=== PATIENT | male | born 1960 | race Native Hawaiian/Other Pacific Islander ===

== ENCOUNTER 2018-12-14 20:38 | Inpatient (IN) | payer BC ==
[2018-12-14] MEDS ORDERED: ASPIRIN PO ONE (22:20)
[2018-12-14 22:50] LABS: Basophils # (Auto) 0.1 K/mm3 (0.0-0.1); Basophils % (Auto) 0.8 % (0.0-1.8); Eosinophils # (Auto) 0.5 K/mm3 (0.0-0.4); Eosinophils % (Auto) 8.7 % (0.0-4.3); Hematocrit 46.1 % (35.5-45.6); Hemoglobin 15.5 gm/dl (11.8-15.2); Lymphocytes # (Auto) 2.2 K/mm3 (1.2-5.4); Lymphocytes % (Auto) 36.2 % (13.4-35.0); Mean Corpuscular HGB Conc 34 % (32-34); Mean Corpuscular Volume 89 fl (84-94); Monocytes # (Auto) 0.4 K/mm3 (0.0-0.8); Monocytes % (Auto) 6.6 % (0.0-7.3); Platelet Count 256 K/mm3 (140-440); Red Blood Count 5.21 M/mm3 (3.65-5.03); Red Cell Distribution Width 13.4 % (13.2-15.2)
[2018-12-14 23:18] LABS: BUN/Creatinine Ratio 21; Blood Urea Nitrogen 15 mg/dL (9-20); Hemolysis Index 32
--- NOTE | 2018-12-14 23:20 | XRay Report ---
PROCEDURE: XR CHEST 1V AP TECHNIQUE: Chest radiograph single view. HISTORY: Chest Pain COMPARISONS: None . FINDINGS: Heart: Normal. Mediastinum/Vessels: Normal. Lungs/Pleural space: Normal. Bony thorax: There is a significant right convex thoracic scoliosis. Life support devices: None. IMPRESSION: No acute cardiopulmonary abnormality. This document is electronically signed by Holli Nolan DO., December 14 2018 11:18:38 PM ET
--- NOTE | 2018-12-15 06:16 | Emergency Department Report ---
ED Chest Pain HPI - General Chief Complaint: Chest Pain Stated Complaint: LUZ/CP Time Seen by Provider: 12/15/18 06:15 Source: patient, family Mode of arrival: Ambulatory Limitations: No Limitations - History of Present Illness Initial Comments: 88-year-old man who states he feels back to normal now. He had intermittent chest pressure with some radiation to his left arm yesterday. He said shortness of breath intermittently for 4 days but not currently. He denies acute diaphoresis nausea or vomiting. He states he stopped smoking 30 years ago. His mother had a heart attack. He has had no prior cardiac workup. MD Complaint: chest pain -: hour(s) Onset: during rest Pain Location: substernal Pain Radiation: LUE Severity: moderate Quality: tightness, pressure Consistency: intermittent, now resolved Improves With: nothing Worsens With: nothing re: dyspnea. denies: nausea, vomting, diaphoresis, sense of impending doom Other Symptoms: denies: cough, fever, syncope Treatments Prior to Arrival: none Aspirin use within the Past 7 Days: (0) No - Related Data Allergies Allergy/AdvReac Type Severity Reaction Status Date / Time No Known Allergies Allergy Verified 12/15/18 06:21 Heart Score - HEART Score History: Highly suspicious EKG: Normal Age: 45-65 Risk factors: > 3 risk factors or hx of atherosclerotic disease Troponin: < normal limit HEART Score: 5 - Critical Actions Critical Actions: 4-6 pts:12-16.6% risk of adverse cardiac event. Should be admitted ED Review of Systems ROS: Stated complaint: LUZ/CP Other details as noted in HPI Constitutional: denies: chills, fever Eyes: denies: eye pain, eye discharge, vision change ENT: denies: ear pain, throat pain Respiratory: shortness of breath. denies: cough, wheezing Cardiovascular: chest pain. denies: palpitations Endocrine: no symptoms reported Gastrointestinal: denies: abdominal pain, nausea, diarrhea Genitourinary: denies: urgency, dysuria Musculoskeletal: denies: back pain, joint swelling, arthralgia Skin: denies: rash, lesions Neurological: denies: headache, weakness, paresthesias Psychiatric: denies: anxiety, depression Hematological/Lymphatic: denies: easy bleeding, easy bruising ED Past Medical Hx - Past Medical History Hx Hypertension: Yes Hx GERD: Yes Hx Asthma: Yes Additional medical history: Psoriasis - Surgical History Past Surgical History?: No - Social History Smoking Status: Former Smoker Substance Use Type: None ED Physical Exam - General Limitations: No Limitations General appearance: alert, in no apparent distress - Head Head exam: Present: atraumatic, normocephalic - Eye Eye exam: Present: normal appearance. Absent: scleral icterus - ENT ENT exam: Present: mucous membranes moist - Neck Neck exam: Present: normal inspection. Absent: tenderness, meningismus - Respiratory Respiratory exam: Present: normal lung sounds bilaterally. Absent: respiratory distress - Cardiovascular Cardiovascular Exam: Present: regular rate, normal rhythm. Absent: systolic murmur, diastolic murmur, rubs, gallop - GI/Abdominal GI/Abdominal exam: Present: soft, normal bowel sounds. Absent: distended, tenderness, guarding, rebound, rigid - Rectal Rectal exam: Present: deferred - Extremities Exam Extremities exam: Present: normal inspection, normal capillary refill. Absent: calf tenderness - Back Exam Back exam: Present: normal inspection - Neurological Exam Neurological exam: Present: alert, oriented X3, CN II-XII intact. Absent: motor sensory deficit - Psychiatric Psychiatric exam: Present: normal affect, normal mood - Skin Skin exam: Present: warm, dry, intact, normal color. Absent: rash ED Course Vital Signs 12/14/18 12/15/18 12/15/18 22:15 05:29 06:53 Temperature 97.9 F 98.3 F Pulse Rate 87 64 70 Respiratory 18 20 Rate Blood Pressure 134/94 131/100 Blood Pressure 148/102 [Left] O2 Sat by Pulse 99 Oximetry - Reevaluation(s) Reevaluation #1: Patient initially declined aspirin he states he gets some heartburn. He is given IV Protonix and encouraged to take the aspirin. 0.5 of Nitropaste given for his diastolic hypertension. He will be admitted for further care and evaluation by the hospitalist service. 12/15/18 07:09 PAUL score - Paul Score Age > 65: (0) No Aspirin use within the Past 7 Days: (0) No 3 or more CAD Risk Factors: (1) Yes 2 or more Angina events in past 24 hrs: (1) Yes Known CAD with more than 50% Stenosis: (0) No Elevated Cardiac Markers: (0) No ST Deviation Greater than 0.5mm: (0) No PAUL Score: 2 ED Medical Decision Making - Lab Data Result diagrams: 12/14/18 22:25 12/14/18 22:25 Laboratory Results - last 24 hr 12/14/18 12/14/18 12/15/18 22:25 22:25 00:47 WBC 6.2 RBC 5.21 H Hgb 15.5 H Hct 46.1 H MCV 89 MCH 30 MCHC 34 RDW 13.4 Plt Count 256 Lymph % (Auto) 36.2 H [place] % (Auto) 6.6 Eos % (Auto) 8.7 H Baso % (Auto) 0.8 Lymph # 2.2 [place] # 0.4 Eos # 0.5 H Baso # 0.1 Seg Neutrophils % 47.7 Seg Neutrophils # 3.0 Sodium 141 Potassium 4.0 Chloride 101.9 Carbon Dioxide 27 Anion Gap 16 BUN 15 Creatinine 0.7 L Estimated GFR > 60 BUN/Creatinine Ratio 21 Glucose 126 H Calcium 9.0 Troponin T < 0.010 < 0.010 12/15/18 04:41 WBC RBC Hgb Hct MCV MCH MCHC RDW Plt Count Lymph % (Auto) [place] % (Auto) Eos % (Auto) Baso % (Auto) Lymph # [place] # Eos # Baso # Seg Neutrophils % Seg Neutrophils # Sodium Potassium Chloride Carbon Dioxide Anion Gap BUN Creatinine Estimated GFR BUN/Creatinine Ratio Glucose Calcium Troponin T < 0.010 - EKG Data -: EKG Interpreted by [place] EKG shows normal: sinus rhythm, axis, intervals, QRS complexes, ST-T waves Rate: normal - EKG Data Interpretation: other (consider left atrial abnormality) - Radiology Data Radiology results: report reviewed (no acute process) Critical care attestation.: If time is entered above; I have spent that time in minutes in the direct care of this critically ill patient, excluding procedure time. ED Disposition Clinical Impression: Diastolic hypertension Chest pain Qualifiers: Chest pain type: unspecified Qualified Code(s): R07.9 - Chest pain, unspecified Disposition: OP ADMIT IP TO THIS HOSP Is pt being admited?: Yes Does the pt Need Aspirin: Yes Condition: Stable Instructions: Chest Pain (ED), Hypertension (ED) Referrals: KALIA VICENTE MD [Primary Care Provider] - 3-5 Days Time of Disposition: 07:11
[2018-12-15] MEDS ORDERED: ASPIRIN PO ONE (06:39)
[2018-12-15] MEDS ORDERED: NITRO-BID 2% TP ONE ×2 (06:39→06:43)
[2018-12-15] MEDS ORDERED: ASPIRIN ONE (06:42)
[2018-12-15] MEDS ORDERED: PROTONIX IV ONE (06:43)
--- NOTE | 2018-12-15 09:18 | History and Physical Report ---
History of Present Illness Date of examination: 12/15/18 Date of admission: 12/15/18 08:03 Chief complaint: Chest pain History of present illness: 58-year-old male with past medical history significant for GERD, asthma presented to the emergency department with complaints of left-sided squeezing pain, 6-7 out of 10 in intensity, intermittent, associated to shortness of breath, no radiation, no alleviating or aggravating factors identified. Patient said he has itching in the eyes and nose, he said likely due to the pollen. Patient denied fever, chills, palpitation or leg swelling. REVIEW OF SYSTEMS: GENERAL: no weight change, no fatigue, no fever HEAD: no head ache EYES: no blurry vision, no acute visual loss EARS: no hearing loss, no discharge, no earache NOSE: no stuffiness, no sneezing, no discharge MOUTH, THROAT AND NECK: no bleeding gums, no sore throat, no swollen neck CARDIAC: As stated in the HPI. RESPIRATORY: As stated in the HPI. GI: no decreased appetite, no nausea, no vomiting, no dysphagia, no diarrhea, no constipation, no abdominal pain URINARY: no change in frequency, no urgency, no polyuria, no hematuria, no incon tinence MUSCULOSKELETAL: no muscle weakness, no pain, no joint stiffness NEUROLOGIC: no loss of sensation/numbness, no tingling, no tremors, no weakness/paralysis HEMATOLOGIC: no anemia, no easy bruising SKIN: no rashes ENDOCRINE: no heat/cold intolerance, no polyuria, no polydipsia, no thyroid prob lems, no diabetes PSYCHIATRIC: no anxiety, no depression, no suicidal ideations Past History Past Medical History: GERD, other (asthma) Past Surgical History: No surgical history Social history: full code. denies: smoking, alcohol abuse, prescription drug abuse, IV drug use Family history: CAD (mother) Medications and Allergies Allergies Allergy/AdvReac Type Severity Reaction Status Date / Time No Known Allergies Allergy Verified 12/15/18 06:21 Active Meds: Active Medications Regadenoson (Lexiscan) 0.4 mg IV ONCE ONE Stop: 12/15/18 09:09 Exam - Physical Exam Narrative exam: Not in cardiopulmonary distress. The patient appeared well nourished and normally developed. Vital signs as documented. Head exam is unremarkable. No scleral icterus . Neck is without jugular venous distension, thyromegaly, or carotid bruits. Lungs are clear to auscultation. Cardiac exam reveals regular rate and Rhythm. First and second heart sounds normal. No murmurs, rubs or gallops. Abdominal exam reveals normal bowel sounds, no masses, no organomegaly and no aortic enlargement. Extremities are nonedematous and both femoral and pedal pulses are normal. 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 No focal weakness. - Constitutional Vitals: Temp Pulse Resp BP Pulse Ox 98.3 F 69 19 131/100 99 12/15/18 05:29 12/15/18 07:00 12/15/18 07:00 12/15/18 07:00 12/15/18 05:29 Results - Labs CBC & Chem 7: 12/14/18 22:25 12/14/18 22:25 Labs: Laboratory Last Values WBC 6.2 K/mm3 (4.5-11.0) 12/14/18 22:25 RBC 5.21 M/mm3 (3.65-5.03) H 12/14/18 22:25 Hgb 15.5 gm/dl (11.8-15.2) H 12/14/18 22:25 Hct 46.1 % (35.5-45.6) H 12/14/18 22:25 MCV 89 fl (84-94) 12/14/18 22:25 MCH 30 pg (28-32) 12/14/18 22:25 MCHC 34 % (32-34) 12/14/18 22:25 RDW 13.4 % (13.2-15.2) 12/14/18 22:25 Plt Count 256 K/mm3 (140-440) 12/14/18 22:25 Lymph % (Auto) 36.2 % (13.4-35.0) H 12/14/18 22:25 [place] % (Auto) 6.6 % (0.0-7.3) 12/14/18 22:25 Eos % (Auto) 8.7 % (0.0-4.3) H 12/14/18 22:25 Baso % (Auto) 0.8 % (0.0-1.8) 12/14/18 22:25 Lymph # 2.2 K/mm3 (1.2-5.4) 12/14/18 22:25 [place] # 0.4 K/mm3 (0.0-0.8) 12/14/18 22:25 Eos # 0.5 K/mm3 (0.0-0.4) H 12/14/18 22:25 Baso # 0.1 K/mm3 (0.0-0.1) 12/14/18 22:25 Seg Neutrophils % 47.7 % (40.0-70.0) 12/14/18 22:25 Seg Neutrophils # 3.0 K/mm3 (1.8-7.7) 12/14/18 22:25 Sodium 141 mmol/L (137-145) 12/14/18 22:25 Potassium 4.0 mmol/L (3.6-5.0) 12/14/18 22:25 Chloride 101.9 mmol/L (98-107) 12/14/18 22:25 Carbon Dioxide 27 mmol/L (22-30) 12/14/18 22:25 Anion Gap 16 mmol/L 12/14/18 22:25 BUN 15 mg/dL (9-20) 12/14/18 22:25 Creatinine 0.7 mg/dL (0.8-1.5) L 12/14/18 22:25 Estimated GFR > 60 ml/min 12/14/18 22:25 BUN/Creatinine Ratio 21 % 12/14/18 22:25 Glucose 126 mg/dL (75-100) H 12/14/18 22:25 Calcium 9.0 mg/dL (8.4-10.2) 12/14/18 22:25 Troponin T < 0.010 ng/mL (0.00-0.029) 12/15/18 04:41 Assessment and Plan Assessment and plan: Chest pain - Cardiac enzymes are negative - EKG no ST elevation OH - We will have stress test today Asthma - Continue home medications GERD - Continue PPI DVT prophylaxis - Lovenox Disposition; admit to telemetry floor for observation. Advance Directives: Yes VTE prophylaxis?: Chemical Plan of care discussed with patient/family: Yes
[2018-12-15] MEDS ORDERED: PROVENTIL IH PRN (09:20)
[2018-12-15] MEDS ORDERED: PROTONIX PO SCH (10:00)
[2018-12-15] MEDS ORDERED: LEXISCAN IV ONE (10:00)
[2018-12-15 10:37] VITALS: BP 154/103
--- NOTE | 2018-12-15 11:27 | Discharge Summary ---
Providers - Providers Date of Admission: 12/15/18 08:03 Attending physician: PRITI ESTRADA MD Primary care physician: KALIA VICENTE MD Hospitalization Reason for admission: Chest pain Condition: Stable Pertinent studies: Cardiac stress test negative for acute ischemia Hospital course: Patient was admitted earlier this morning for some management of chest pain. Cardiac enzymes were negative, EKG no STEMI, cardiac stress test was negative. Chest pain subsided and discharged home in a stable condition. Patient has history of GERD and he is on esmeprazole. And history of asthma and is on Symbicort. Patient was hemodynamically stable at the time of discharge. Disposition: DC- TO HOME OR SELFCARE Time spent for discharge: 32 minutes - Discharge Diagnoses (1) Chest pain Status: Acute Qualifiers: Chest pain type: unspecified Qualified Code(s): R07.9 - Chest pain, unspecified Core Measure Documentation - Palliative Care Palliative Care/ Comfort Measures: Not Applicable - Core Measures Any of the following diagnoses?: none Exam - Physical Exam Narrative exam: Not in cardiopulmonary distress. The patient appeared well nourished and normally developed. Vital signs as documented. Head exam is unremarkable. No scleral icterus . Neck is without jugular venous distension, thyromegaly, or carotid bruits. Lungs are clear to auscultation. Cardiac exam reveals regular rate and Rhythm. First and second heart sounds normal. No murmurs, rubs or gallops. Abdominal exam reveals normal bowel sounds, no masses, no organomegaly and no aortic enlargement. Extremities are nonedematous and both femoral and pedal pulses are normal. 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 No focal weakness. - Constitutional Vitals: Temp Pulse Resp BP Pulse Ox 98.3 F 75 13 154/103 98 12/15/18 05:29 12/15/18 08:00 12/15/18 08:00 12/15/18 10:30 12/15/18 08:00 Plan Activity: no restrictions Weight Bearing Status: Full Weight Bearing Diet: regular Follow up with: KALIA VICENTE MD [Primary Care Provider] - 3-5 Days Forms: Work/School Release Form
--- NOTE | 2018-12-15 12:01 | Treadmill Report ---
NUCLEAR STRESS TEST REPORT The patient was brought to the Cardiology lab and the patient underwent a Lexiscan stress test, which he tolerated well. Post-stress images reveal homogeneous distribution of the isotope with no significant reversibility to indicate ischemia. Accompanying gated study shows good systolic function with a calculated ejection fraction of 72%. IMPRESSION: 1. Nuclear stress test is negative for reversible defects to indicate ischemia. 2. Good systolic function with no wall motion abnormalities. Ejection fraction is noted to be 72%. 3. Suggest clinical correlation. JOB# [id number] THEO/NTS
[2018-12-15] MEDS ORDERED: LOVENOX SUB-Q SCH (22:00)
== END 2018-12-15 14:22 | disposition home or self-care (01) | DRG 206 ==
LOC: ED 20:38 → 4A 12-15 08:03
PROVIDERS: ADMIT Internal Medicine; ATTEND Internal Medicine
DX: M94.0 Chondrocostal junction syndrome [Tietze] (principal); K21.9 Gastro-esophageal reflux disease without esophagitis; J45.909 Unspecified asthma, uncomplicated; L40.9 Psoriasis, unspecified; Z82.49 Family history of ischemic heart disease and other diseases of the circulatory system; Z87.891 Personal history of nicotine dependence
CPT/HCPCS: 36415; 71045; 78452; 80048; 84484; 85025; 93005; 93010; 93017; G0378; A9502; C9113; J2785

== ENCOUNTER 2018-12-19 11:09 | Outpatient (CLI) | payer BC ==
--- NOTE | 2018-12-19 13:29 | Cat Scan Report ---
CTA chest: History: Wheezing. Findings: The pulmonary arteries appears unremarkable. No evidence of pulmonary embolism. No evidence of aortic aneurysm. No pleural pericardial effusion. Normal lung parenchyma. Pleurodiaphragmatic adhesions right lower lobe Impression: No evidence of pulmonary embolism. No acute lung changes.
== END 2018-12-19 11:10 | disposition home or self-care (01) ==
LOC: CT 11:09
PROVIDERS: ATTEND Internal Medicine
DX: R06.2 Wheezing (principal); R06.02 Shortness of breath; I10 Essential (primary) hypertension; K21.9 Gastro-esophageal reflux disease without esophagitis
CPT/HCPCS: 71275; Q9967